=== PATIENT | male | born 1980 ===

== ENCOUNTER 2020-09-02 08:00 | Outpatient (CLI) | payer OTHER | END 2020-09-02 12:33 | disposition home or self-care (01) | LOC: LAB 08:00 → EDSTATUS 09-05 08:15 → ADM 09-05 08:15 | PROVIDERS: ATTEND Urology | DX: Z20.828 Contact with and (suspected) exposure to other viral communicable diseases (principal) ==

== ENCOUNTER 2020-09-04 20:25 | Inpatient (IN) | payer OTHER ==
[~2020-09-04] VITALS: Ht 175.3 cm; Wt 95.3 kg
[2020-09-04] MEDS ORDERED: KETO10TA2 (20:42)
[2020-09-04] MEDS ORDERED: PERCOCET 10-321 EACH (20:43)
[2020-09-04] MEDS ORDERED: TAMS0.4C (20:48)
[2020-09-04] MEDS ORDERED: MACROBID 100 M100 MG (20:49)
[2020-09-04] MEDS ORDERED: KETOROLAC TROMET5 M1 (20:49)
[2020-09-04] MEDS ORDERED: ZOFRAN8 MG (20:50)
== END 2020-09-12 19:41 | disposition home or self-care (01) | DRG 693 ==
LOC: ER 20:25 → O/R 09-05 06:40 → SURH 09-05 06:40 → SEC-K 09-05 06:40 → O/R 09-05 13:12 → SURH 09-05 15:30
PROVIDERS: ADMIT Urology; ATTEND Urology
PROC: BW21ZZZ Computerized Tomography (CT Scan) of Abdomen and Pelvis (ICD-10-PCS; 2020-09-05)
PROC: 0T9780Z Drainage of Left Ureter with Drainage Device, Via Natural or Artificial Opening Endoscopic (ICD-10-PCS; principal; 2020-09-05 13:30)
PROC: B24BZZZ Ultrasonography of Heart with Aorta (ICD-10-PCS; 2020-09-08)
PROC: BW21ZZZ Computerized Tomography (CT Scan) of Abdomen and Pelvis (ICD-10-PCS; 2020-09-12)
DX: N20.1 Calculus of ureter (principal); A41.81 Sepsis due to Enterococcus; N13.6 Pyonephrosis; N10 Acute pyelonephritis; Z16.22 Resistance to vancomycin related antibiotics; Z20.828 Contact with and (suspected) exposure to other viral communicable diseases; Z87.442 Personal history of urinary calculi

== ENCOUNTER 2020-10-03 06:55 | Day surgery (SDC) | payer OTHER ==
[~2020-10-03 06:55] MED LIST: KETO10TA2; KETOROLAC TROMET5 M1; MACROBID 100 M100 MG; PERCOCET 10-321 EACH; TAMS0.4C; ZOFRAN8 MG
== END 2020-10-03 14:20 | disposition home or self-care (01) ==
LOC: CIR.AMB 06:55
PROVIDERS: ATTEND Urology
DX: N20.0 Calculus of kidney (principal); Z20.828 Contact with and (suspected) exposure to other viral communicable diseases

== ENCOUNTER → 2020-12-29 08:18 | Outpatient (CLI) | payer OTHER | END | disposition home or self-care (01) | LOC: LAB 08:18 | PROVIDERS: ATTEND Urology | DX: R31.1 Benign essential microscopic hematuria (principal) ==

== ENCOUNTER → 2020-12-29 | Outpatient (CLI) | payer OTHER ==
[~2020-12-29] MED LIST changes: +FORTAMET500 MG PO
== END | disposition home or self-care (01) ==
LOC: TOM 09:15
PROVIDERS: ATTEND Urology
DX: N20.1 Calculus of ureter (principal); R31.1 Benign essential microscopic hematuria

== ENCOUNTER 2021-02-03 07:18 | Day surgery (SDC) | payer OTHER | END 2021-02-03 19:50 | disposition home or self-care (01) | LOC: CIR.AMB 07:18 | PROVIDERS: ATTEND Urology | DX: N20.0 Calculus of kidney (principal); Z20.822 Contact with and (suspected) exposure to COVID-19 ==

== ENCOUNTER 2021-02-04 09:51 | Inpatient (IN) | payer OTHER ==
[~2021-02-04] VITALS: Ht 172.7 cm; Wt 97.5 kg
== END 2021-02-14 18:58 | disposition home or self-care (01) | DRG 660 ==
LOC: ER 09:51 → SURH 18:49
PROVIDERS: ADMIT Urology; ATTEND Urology
PROC: BW2110Z Computerized Tomography (CT Scan) of Abdomen and Pelvis using Low Osmolar Contrast, Unenhanced and Enhanced (ICD-10-PCS; 2021-02-04)
PROC: 8E0ZXY6 Isolation (ICD-10-PCS; 2021-02-04)
PROC: 0T778DZ Dilation of Left Ureter with Intraluminal Device, Via Natural or Artificial Opening Endoscopic (ICD-10-PCS; principal; 2021-02-05)
PROC: 3E0F7SF Introduction of Other Gas into Respiratory Tract, Via Natural or Artificial Opening (ICD-10-PCS; 2021-02-05)
PROC: BW2810Z Computerized Tomography (CT Scan) of Head using Low Osmolar Contrast, Unenhanced and Enhanced (ICD-10-PCS; 2021-02-10)
PROC: BN2 Imaging, Skull and Facial Bones, Computerized Tomography (CT Scan) (ICD-10-PCS; 2021-02-11)
PROC: 0TP9XDZ Removal of Intraluminal Device from Ureter, External Approach (ICD-10-PCS; 2021-02-14)
DX: N20.0 Calculus of kidney (principal); N10 Acute pyelonephritis; H92.02 Otalgia, left ear; R51.9 Headache, unspecified; J32.8 Other chronic sinusitis; R50.9 Fever, unspecified; E11.9 Type 2 diabetes mellitus without complications; Z20.822 Contact with and (suspected) exposure to COVID-19; Z87.442 Personal history of urinary calculi

== ENCOUNTER 2021-11-01 09:52 | Outpatient (CLI) | payer OTHER | END 2021-11-01 10:04 | disposition home or self-care (01) | LOC: SONOGRAMA 09:52 | PROVIDERS: ATTEND Urology | DX: N20.0 Calculus of kidney (principal); R31.1 Benign essential microscopic hematuria ==

== ENCOUNTER 2021-11-01 09:58 | Outpatient (CLI) | payer OTHER | END 2021-11-01 09:59 | disposition home or self-care (01) | LOC: LAB 09:58 | PROVIDERS: ATTEND Urology | DX: R31.1 Benign essential microscopic hematuria (principal); R97.20 Elevated prostate specific antigen [PSA] ==

== ENCOUNTER 2022-05-13 13:14 | Inpatient (IN) | payer OTHER ==
[~2022-05-13] VITALS: Ht 172.7 cm; Wt 95.3 kg
--- NOTE | 2022-05-13 13:35 | NUR ---
SE RECIB EPTE ALERTA Y ORIENTADA X3,REFIERE TENER DAYNA TIENE DOLOR EN EL COSTADO DERECHO ES PTE DEL ANTONIO HOPE.
--- NOTE | 2022-05-13 14:05 | NUR ---
DR MANLEY EVALUA A PTE QUIEN ORDENA TX MEDICO. SE ORIENTA A PTE SOBRE TX MEDICO Y EL MISMO REFIERE ENTENDER. MRS JJ REALIZA MUESTRAS DE LABORATORIO Y ADMINISTRACION DE MEDICAMENTOS ISABEL ORDEN MEDICA BAJO MEDIDAS ASEPTICAS. CT DONE. PENDIENTE RESULTADOS.
--- NOTE | 2022-05-13 14:21 | NUR ---
PTE CON MEDIAS NEUMATICAS DE MARIO PERTENENCIAS POR DEV TOMÁS NO SE JENNIFER MEDIDAS.
--- NOTE | 2022-05-13 14:59 | NUR ---
SE RECIBE PTE ALERTO Y ORIENTADO X3, ACOMPANADO DE FAMILIAR. PTE TIENE VENOPUNCION LA CON ANGIO #20, PATENTE Y AREA CONRADO DE EDEMA Y ERITEMA. PTE TIENE BAJANDO 0.45NSS @125ML/HR. PTE PENDIENTE A CONSULTA CON DR MANLEY Y LECTURA DE CT. [place] EN NIVEL MAS BAJO Y BARANDAS ELEVADAS POR PRECAUCION. SE MANTIENE EN OBSERVACION.
--- NOTE | 2022-05-13 16:19 | NUR ---
PTE CON ORDEN DE ADMISION A KADE DE OPERACIONES, ORIENTADO SOBRE EL PROCESO DE ADMISION, TX Y PROCEDIMIENTOS A REALIZAR, LO CUAL PTE Y FAMILIAR REFIEREN ENTENDER. SE ENTREGA VESTIMENTA PARA OR Y SE ORIENTA SOBRE PROTOCOLO. SE MANTIENE BAJO OBSERVACION.
--- NOTE | 2022-05-13 16:21 | NUR ---
PTE ES LLEVADO A OR POR PERSONAL DE TRANSPORTE EN T[place]YET EN COMPANIA DE FAMILIAR JUNTO CON PEEWEE PERTENENCIAS.
== END 2022-05-17 12:37 | disposition home or self-care (01) | DRG 694 ==
LOC: ER 13:14 → SURG 16:09 → EDBD 16:09 → O/R 16:09 → SURG 17:41 → EDBD 05-17 12:37
PROVIDERS: ADMIT Urology; ATTEND Urology
PROC: BW21ZZZ Computerized Tomography (CT Scan) of Abdomen and Pelvis (ICD-10-PCS; 2022-05-13)
PROC: 0TP98DZ Removal of Intraluminal Device from Ureter, Via Natural or Artificial Opening Endoscopic (ICD-10-PCS; principal; 2022-05-14)
DX: N20.2 Calculus of kidney with calculus of ureter (principal); N39.0 Urinary tract infection, site not specified; E87.1 Hypo-osmolality and hyponatremia; D64.9 Anemia, unspecified; E86.0 Dehydration; R00.1 Bradycardia, unspecified; I10 Essential (primary) hypertension; E11.9 Type 2 diabetes mellitus without complications; Z20.822 Contact with and (suspected) exposure to COVID-19

== ENCOUNTER 2022-05-22 10:48 | Outpatient (CLI) | payer OTHER | END 2022-05-22 11:13 | disposition home or self-care (01) | LOC: LAB 10:48 → EDBD 10:48 → LAB 11:13 | PROVIDERS: ATTEND Urology | DX: B30.0 Keratoconjunctivitis due to adenovirus (principal); R31.1 Benign essential microscopic hematuria; N20.0 Calculus of kidney ==

== ENCOUNTER 2022-05-25 09:16 | Inpatient (IN) | payer OTHER ==
[~2022-05-25] VITALS: Ht 172.7 cm; Wt 95.3 kg
== END 2022-05-26 13:30 | disposition home or self-care (01) | DRG 661 ==
LOC: CIR.AMB → EDBD → CIR.AMB 09:16 → SURG 19:13
PROVIDERS: ADMIT Urology; ATTEND Urology
PROC: 0TC68ZZ Extirpation of Matter from Right Ureter, Via Natural or Artificial Opening Endoscopic (ICD-10-PCS; 2022-05-25)
PROC: 0T788DZ Dilation of Bilateral Ureters with Intraluminal Device, Via Natural or Artificial Opening Endoscopic (ICD-10-PCS; 2022-05-25)
PROC: 0TP98DZ Removal of Intraluminal Device from Ureter, Via Natural or Artificial Opening Endoscopic (ICD-10-PCS; 2022-05-25)
PROC: 0TC78ZZ Extirpation of Matter from Left Ureter, Via Natural or Artificial Opening Endoscopic (ICD-10-PCS; principal; 2022-05-25 15:45)
DX: N20.0 Calculus of kidney (principal); Z20.822 Contact with and (suspected) exposure to COVID-19

== ENCOUNTER 2023-08-21 12:11 | Emergency (ER) | payer OTHER ==
[~2023-08-21] VITALS: Ht 172.7 cm; Wt 99.8 kg
[2023-08-21 15:37] LABS: PH,URINE 5.5 (5.0-8.0); URINE APPEARANCE Clear; URINE BILIRRUBIN Negative (NEGATIVE); URINE BLOOD Negative; URINE COLOR Yellow; URINE LEUKOCYTE Negative; URINE NITRATE Negative; URINE PROTEIN Negative (NEGATIVE); URINE UROBILINOGEN 0.2 E.U./dl
[2023-08-21 15:38] LABS: HEMATOCRIT 39.7 % (39.0-48.0); MEAN CELL VOLUME 86.8 fL (80.0-100.00); MEAN CORPUSCULAR HEMOGLOBIN 30.5 pg (27.00-32.0); MEAN CORPUSCULAR HGB CONC 35.2 g/dl (32.0-36.0); PLATELET COUNT 236 K/uL (150-450); RED BLOOD COUNT 4.57 M/uL (4.00-6.00); RED CELL DISTRIBUTION WIDTH 13.3 % (11.5-14.5)
[2023-08-21 15:42] LABS: URINE BACTERIA 18.8 uL (0.0-1933); URINE EPITHELIAL CELLS 1.8 uL (0.0-38.8); URINE GLUCOSE >=1000 MG/DL (NEGATIVE); URINE RBC 0.7 uL (0.0-20.8); URINE WBC 1.3 uL (0.0-23.2)
[2023-08-21 16:22] LABS: ALBUMIN 3.8 gm/dL (3.4-5.0); BILIRUBIN TOTAL 0.38 mg/dL (0.3-1.2); CALCIUM 9.1 mg/dL (8.5-10.1); CREATININE SERUM 1.02 mg/dL (0.70-1.30); GFR 79.34; GLOBULINA 3.7 G/DL (2.4-3.5); POTASSIUM 4.17 mEq/L (3.5-5.1); TOTAL PROTEIN 7.5 gm/dL (6.4-8.2)
[2023-08-21] MEDS ORDERED: METFORMIN HCL500 M3 PO (17:58)
[2023-08-21] MEDS ORDERED: KETO10TA2 PO (17:58)
== END 2023-08-21 18:05 | disposition home or self-care (01) ==
LOC: ER 12:11
PROVIDERS: General Practice
DX: R10.84 Generalized abdominal pain (principal)